=== PATIENT | female | born 1965 | race African-American/Black ===

== ENCOUNTER 2020-04-30 17:54 | Emergency (ER) | payer OTHER ==
[~2020-04-30] VITALS: Ht 165.1 cm; Wt 96.0 kg
[2020-04-30 18:54] LABS: BASOPHILS % 0.7 % (0.0-2.0); EOSINOPHILS % 0.4 % (0.0-5.0); HEMATOCRIT. 38.1 % (36.0-48.0); LYMPHOCYTES % 23.5 % (20.0-50.0); MEAN CORPUSCULAR HEMOGLOBIN 28.9 pg (28.0-32.0); MEAN CORPUSCULAR VOLUME 84.8 fL (81.0-99.0); MONOCYTES % 9.6 % (2.0-8.0); NEUTROPHILS % 65.8 % (40.0-76.0); PLATELET 238 x1000/uL (130-400); RED CELL DISTRIBUTION WIDTH 12.8 % (11.6-14.6)
[2020-04-30 18:56] LABS: CHLORIDE 99 mEq/L (98-107)
[2020-04-30 20:13] VITALS: BP 123/78
[2020-04-30] MEDS ORDERED: DEXTROSE 10% WATER 500 ML IV ONE (20:45)
== END 2020-04-30 22:17 | disposition home or self-care (01) ==
LOC: ER 17:54
DX: E11.649 Type 2 diabetes mellitus with hypoglycemia without coma (principal); N28.9 Disorder of kidney and ureter, unspecified; E78.00 Pure hypercholesterolemia, unspecified; Z98.890 Other specified postprocedural states
CPT/HCPCS: 36415; 80053; 82962; 85025; 93005; 96365; 99284